=== PATIENT | female | born 1945 | race Caucasian/White ===

== ENCOUNTER 2023-07-27 06:14 | Day surgery (SDC) | payer OTHER, SELFPAY ==
[2023-07-27] VITALS (11 sets, daily range): BP systolic 103–153; BP diastolic 60–88; BMI 33.7
[2023-07-27] MEDS: NSS 251 ML IV (07:04)
--- NOTE | 2023-07-27 08:12 | ITS.CL.CATH ---
Commodity Industry Analyst - Catheterization
Cardiac Catheterization
Procedure Report:
Percutaneous coronary intervention of the proximal right coronary artery with shockwave lithotripsy guidance was planned for today. Right radial access was obtained and a 6 [place] sheath was placed. A 260 J-wire was passed through the AR-2 guiding
catheter and quickly obtained aortic footage but the aorta to guiding catheter was getting caught on what felt like a proximal radial artery stenosis or stricture and the catheter would not pass into the brachial artery. The wire was removed and
angiography was planned, however, aspiration of the catheter only revealed clotted blood so the catheter was quickly removed at this point in time. During that timeframe with the wire and for less than 90 seconds and the catheter alone and for less
than 1 minute, the entire catheter was full of substantial amounts of clot. The sheath was then aspirated and there was extensive arterial clot in it as well. Right radial pulse was normal and there is no evidence of restriction of blood flow, so
a radial band was placed on the radial arteriotomy site and the procedure was aborted at that time.
[2023-07-27] MEDS: NSS 1000 IV (08:47)
[2023-07-27 10:00] LABS: VerifyNow PRU 111 PRU (180-376)
== END 2023-07-27 10:57 | disposition home or self-care (01) ==
LOC: CATH 06:14
PROVIDERS: Nurse Practitioner; ATTENDING PHYSICIAN Internal Medicine Interventional Cardiology; FAMILY PHYSICIAN Registered Nurse; OTHER PHYSICIAN Internal Medicine Cardiovascular Disease
DX: I25.10 Atherosclerotic heart disease of native coronary artery without angina pectoris (principal); I70.208 Unspecified atherosclerosis of native arteries of extremities, other extremity; E78.5 Hyperlipidemia, unspecified; Z79.82 Long term (current) use of aspirin; I10 Essential (primary) hypertension
CPT/HCPCS: 85576; 92920; C1887; C1894

== ENCOUNTER 2025-04-12 07:50 | Day surgery (SDC) | payer OTHER, SELFPAY ==
[2025-04-12] VITALS (8 sets, daily range): BP systolic 115–178; BP diastolic 75–97; BMI 39.6
--- NOTE | 2025-04-12 07:22 | ITS.CL.CATH ---
Plant Technician/Control Room Operator - Catheterization
Cardiac Catheterization
Procedure Report:
LEFT HEART CATHETERIZATION
Date of Procedure: April 12, 2025
Referring: Sina Rocha MD
PROCEDURES:
1. Left heart catheterization, coronary angiogram.
2. Moderate sedation.
INDICATION: Ongoing GRAY with prior CAD
ACCESS: Left radial artery, 6Fr. sheath, under US guidance.
HEMODYNAMICS : (mmHg)
AO (s/d) : 195/92
LVEDP : 18
No significant gradient across the aortic valve to suggest aortic stenosis.
CORONARY FINDINGS
Dominance: Right
Left Main Trunk (LMT): �Large caliber vessel that gives rise to the LAD and LCx branches and is free of angiographic disease.
Left Anterior Descending Artery (LAD): �Large caliber tortuous vessel courses along the anterior inter-ventricular groove before wrapping around the cardiac apex. The mid-LAD has 40% stenosis.�
Left Circumflex Artery (LCx): �Large caliber vessel that gives off two medium caliber and a small caliber major obtuse marginal (OM) branches, and a small caliber left posterolateral. �The LCx mild luminal disease.�
Right Coronary Artery (RCA): �Large caliber dominant vessel that gives rise to the posterior descending artery (RPDA) and postero-lateral ventricular (RPLV) branches distally. �The RCA has proximal 40-50% and then a mid-vessel 20-30% stenosis.�
SEDATION: 27 minutes of procedural sedation was utilized. IV Midazolam and IV Fentanyl were administered. An independent medical director occupational health was present to assist with and help manage the patient's level of consciousness and physiologic status.
RADIATION SUMMARY: Fluoro Time (min): 5.4, Dose (mGy): 445, DAP (Gy.cm2) : 26.2
Closure Device: There were no immediate intra-procedural complications. The sheath was pulled in the confectionery laboratory manager and a vascular-band applied to the left wrist for radial artery hemostasis using the patent hemostasis technique.
CONCLUSIONS
1. Mild to moderate coronary artery disease.
2. LVEDP 18mmHG.
RECOMMENDATIONS
1. Wean radial band per protocol. Monitor right hand perfusion and for bleeding from the radial site following removal of the vascular-band following trans-radial access.
2. Continue aggressive medical therapy and risk factor modification for secondary CAD prevention.
3. Hydrate with normal saline to mitigate the risk of contrast-induced acute kidney injury.
4. Follow-up with Dr. Rocha
Aggie Marcos MD, [facility], [facility]
Copy to: Sina Rocha MD
[2025-04-12 08:31] LABS: Hematocrit 39.3 % (37.0-47.0); Hemoglobin 13.3 g/dL (12.0-16.0); Mean Corp Hgb Conc. 33.8 g/dL (33.0-37.0); Mean Corpuscular Volume 86.6 fL (81.0-99.0); Platelet Count 147 10^3/uL (130-400); Red Cell Dist. Width 14.0 % (11.5-14.5)
[2025-04-12] MEDS: LOW STRENGTH ASPIRIN 81 MG PO (08:35)
[2025-04-12] MEDS: NSS 295 ML IV (08:35)
[2025-04-12 08:44] LABS: Glucose - Point of Care 186 mg/dl (70-99)
[2025-04-12 09:07] LABS: Blood Urea Nitrogen 13 mg/dl (7-17); Calcium 9.0 mg/dl (8.4-10.2); Carbon Dioxide 26 mmol/L (22-30); Chloride 104 mmol/L (98-107); Estimated Creatinine Clearance 56 ml/min; Glucose 197 mg/dl (70-99); Potassium 4.0 mmol/L (3.5-5.1); Sodium 137 mmol/L (135-145); eGFR > 60.00
[2025-04-12] MEDS: NORVASC 5 MG PO (11:28)
[2025-04-12] MEDS: NSS 1000 IV (11:29)
== END 2025-04-12 13:30 | disposition home or self-care (01) ==
LOC: CATH 07:50
PROVIDERS: Nurse Practitioner Adult Health; ATTENDING PHYSICIAN Internal Medicine Interventional Cardiology; FAMILY PHYSICIAN Family Medicine; OTHER PHYSICIAN Internal Medicine Cardiovascular Disease
DX: R06.09 Other forms of dyspnea (principal); I25.10 Atherosclerotic heart disease of native coronary artery without angina pectoris; I10 Essential (primary) hypertension; Z79.82 Long term (current) use of aspirin; E11.9 Type 2 diabetes mellitus without complications; J45.909 Unspecified asthma, uncomplicated
CPT/HCPCS: 99152; 99153; 80048; 82962; 85027; 93458; C1769; C1894; Q9967